=== PATIENT | male | born 1980 | race Caucasian/White ===

== ENCOUNTER 2017-03-28 18:55 | Inpatient (IN) | payer OTHER ==
--- NOTE | ~2017-03-28 | PN ---
Unit #: [id number] #: [id number] Patient: NATE JUSTICE [id number] [facility] [address] [place] [address] [id number] I MR#: [id number] NAME: NATE JUSTICE ROOM: [facility] Age: 36 Sex: M Admission Date: 03/28/2017 : 1980 Attending Physician: Henry Castro M.D. Admitting Physician: Henry Castro M.D. Primary Care Physician: Generic Doctor Not In System [facility] PROGRESS NOTES DATE 03/31/2017 DISCUSSION Last evening Nate became quite delirious, with confusion, wandering, and disorientation. This was a marked change from his presentation that morning. He was placed on one-to-one by staff, and despite this he unfortunately suffered a fall in which he got a small but cut over his right eyelid. He was sent out for assessment and his cut was sutured. This morning he continues to be mildly confused and disoriented. Memory and concentration are impaired and his thought processes demonstrate some evidence of delirium. ASSESSMENT Alcohol dependence with delirium (revised diagnosis) PLAN Continue one-to-one precautions and monitor for further delirium. We will continue with the detox protocol. Dictated by... Pinky Moreno/chepe TD: 04/02/2017 13:25 JOB #: [id number] [facility] PROGRESS NOTES Page 1 of 1 X Henry Castro MD X PROGRESS NOTE
--- NOTE | ~2017-03-28 | PN ---
Unit #: [id number] #: [id number] Patient: NATE JUSTICE [id number] [facility] [address] [place] [address] [id number] I MR#: [id number] NAME: NATE JUSTICE ROOM: P179 Age: 36 Sex: M Admission Date: 03/28/2017 : 1980 Attending Physician: Henry Castro M.D. Admitting Physician: Henry Castro M.D. Primary Care Physician: Generic Doctor Not In System [facility] PROGRESS NOTES DATE 04/01/2017 DISCUSSION Nate has been able to come off of his one-to-one precautions today. He is a little more alert and fully oriented although he has little memory of the events that occurred during his episode of delirium. Memory and concentration are improved and his thought processes are nonpsychotic. ASSESSMENT Alcohol dependence with delirium. PLAN Continue current detox protocol. Dictated by... Pinky MorenoH/chepe TD: 04/02/2017 13:28 JOB #: [id number] [facility] PROGRESS NOTES Page 1 of 1 X Henry Castro MD PROGRESS NOTE
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
--- NOTE | ~2017-03-28 | A ---
[facility] Nutrition Therapy DATE: 03/29/17 Patient: EFRA JUSTICE Physician: HARMBETTYE Address: [address] [place] [address] Room/Bed: [address], Zip: [place] [address] Admit Date: 03/28/17 Date of : [birth year] Height: 5 11 Weight: [id number] NUTRITIONAL ASSESSMENT: REASON: NUTRITION RISK POINT- UNINTENTIONAL WEIGHT LOSS PATIENT ADMITTED FOR ETOH DETOX PMH: NONE Anthropometrics: HT: 5'11", WT: 158#, BMI: 22, %IBW: 92 Labs: 03/29/17- BUN: 6 Meds: DESYREL, DETOX PROTOCOL Assessment: PATIENT IS A 36 Y/O MALE ADMITTED FOR ETOH DETOX. PATIENT IS CURRENTLY UNEMPLOYED, RENTS A HOUSE WITH ROOMMATES, DRINKS A FIFTH ETOH DAILY, AND HAS OCCASIONAL MARIJUANA USE. PATIENT STATED A POOR APPETITE WITH A 20# WEIGHT LOSS OVER LAST SEVERAL MONTHS. CURRENT PO INTAKES ARE NOT AVAILABLE. PATIENT'S BMI IS WITHIN A HEALHTY RANGE AND HE IS 92% OF HIS IBW. THERE ARE NO SKIN OR GI ISSUES NOTED ATT. PATIENT IS ON A REGULAR DIET WIH NO CAFFEINE. Dx: UNINTENTIONAL WIEGHT LOSS R/T CURRENT CONDITION, DETOX AEB SELF-REPORTED WEIGHT LOSS, DECREASED APPETITE, NUTRITIONAL RISK POINT Intervention: REGULAR DIET WITH NO CAFFEINE, MEDS PER MD, DETOX, PSYCH Monitoring, Evaluation and Goals: 1. ADEQUATE PO INTAKES >50% OF MEALS 2. PREVENT, CORRECT MICRO/MACRO NUTRIENT DEFICIENCIES MONITOR: WEIGHTS, LABS, PO/FLUID INTAKES Recommendations: 1. CONTINUE REGULAR DIET WITH NO CAFFEINE TOLERATED. IF PATIENT HAS C/O HUNGER PLEASE SEND ORDER FOR LARGE PORTION ENTREES AND RD WILL APPROVE 2. ENCOURAGE ADEQUATE PO AND FLUID INTAKES RD TO F/U PER PROTOCOL AND PRN R/T PATIENT MILDLY COMPROMISED [facility] Nutrition Therapy DATE: 03/29/17 Patient: EFRA JUSTICE Physician: CUCO Address: [address] [place] [address] Room/Bed: [address], Zip: [place] [address] Admit Date: 03/28/17 Date of : [birth year] Height: 5 11 Weight: [phone] Respectfully, MACARIO SALGADO RD, LD [facility] cc: client file
--- NOTE | ~2017-03-28 | DS ---
Unit #: [id number] #: [id number] Patient: NATE JUSTICE [id number] [facility] [address] [place] [address] [id number] I MR#: [id number] NAME: NATE JUSTICE ROOM: 79 Age: 36 Sex: M Admission Date: 03/28/2017 : 1980 Discharge Date: 04/02/2017 Attending Physician: Henry Castro M.D. Primary Care Physician: Generic Doctor Not In System DISCHARGE SUMMARY REASON FOR ADMISSION Nate is a 36-year-old man, who presented to the [place] office reporting the need for inpatient alcohol detox due to ongoing alcohol dependence. He had no suicidal ideation, intent, or plan and was transferred to [facility] for medical treatment. DIAGNOSTIC STUDIES LABORATORY RESULTS: Please see hospital chart. HOSPITAL COURSE Nate was admitted and placed on the alcohol detox protocol. Approximately 48 hours into his period of inpatient detox, he developed a delirium with confusion, disorientation, psychosis, and wandering into other patient's rooms. He suffered a fall with a mild laceration over his right eye, which was treated in the emergency room, and he was placed on one-to-one precautions. After another 24 hours, his delirium improved, and he stated he had not had an episode of that type in the past. He continued to improve with ongoing compliance with the detox protocol and on the date of discharge, his alcohol withdrawal and alcohol withdrawal delirium appeared to have resolved. He remained free of suicidal ideation, intent, or plan throughout the hospitalization. DISCHARGE DIAGNOSES AXIS I: Alcohol dependence with withdrawal, and perceptual disturbance, resolved, F10.232. AXIS II: No diagnosis. AXIS III: Alcohol withdrawal, resolved. AXIS IV: AXIS V: DISCHARGE INSTRUCTIONS Follow up with CD programing of the patient's choice. DISCHARGE MEDICATIONS None. CONDITION AT DISCHARGE Improved. PROGNOSIS Fair to good. Unit #: [id number] #: [id number] Patient: NATE JUSTICE DIET AND ACTIVITY Ad luna. Dictated by... Henry Castro M.D. H/rylie TD: 04/03/2017 01:58 JOB #: [id number] DISCHARGE SUMMARY Page 1 of 1 X Henry Castro MD DISCHARGE SUMMARY
--- NOTE | ~2017-03-28 | PN ---
Unit #: [id number] #: [id number] Patient: NATE JUSTICE [id number] [facility] [address] [place] [address] [id number] I MR#: [id number] NAME: NATE JUSTICE ROOM: [facility] Age: 36 Sex: M Admission Date: 03/28/2017 : 1980 Attending Physician: Henry Castro M.D. Admitting Physician: Henry Castro M.D. Primary Care Physician: Generic Doctor Not In System [facility] PROGRESS NOTES DATE 03/30/2017 DISCUSSION Nate has active detox symptoms today including shaking, sweating and anxiety. He is alert and fully oriented today. His memory and concentration are fair. Thought processes are logical with no evidence of confusion. ASSESSMENT Alcohol dependence. PLAN Continue detox protocol. Dictated by... Pinky MorenoH/chepe TD: 04/02/2017 13:21 JOB #: [id number] [facility] PROGRESS NOTES Page 1 of 1 X Henry Castro MD PROGRESS NOTE
--- NOTE | ~2017-03-28 | HP ---
Unit #: [id number] #: [id number] Patient: NATE JUSTICE [id number] [place] [address] [id number] I MR#: [id number] NAME: NATE JUSTICE ROOM: P179 Age: 36 Sex: M Admission Date: 03/28/2017 : 1980 Attending Physician: Henry Castro M.D. Admitting Physician: Henry Castro M.D. Primary Care Physician: Generic Doctor Not In System HISTORY AND PHYSICAL HISTORY OF PRESENT ILLNESS Nate is a 42 year old admitted to [facility] because of his abuse of alcohol. He is detoxing. PAST MEDICAL HISTORY Long history of alcohol abuse PAST SURGICAL HISTORY Nothing reported. ALLERGIES No known drug allergies. SOCIAL HISTORY He does not smoke. Drinks a fifth of vodka on a daily basis. Admits to using marijuana on occasion. FAMILY HISTORY Medically noncontributory. REVIEW OF SYSTEMS CONSTITUTIONAL: No fever or chills. HEENT: Denies any sore throat, ear pain or runny nose. CARDIOVASCULAR: Denies chest pain, irregular heart rhythm or palpitations. CHEST: Denies shortness of breath or cough. No hemoptysis. GASTROINTESTINAL: Denies nausea, vomiting, diarrhea or chronic constipation. ENDOCRINE: Denies history of increased thirst or urination. No recent significant weight loss or gain. GENITOURINARY: Denies dysuria, frequency, or hematuria. SKIN: Denies any rashes. HEMATOLOGIC: Denies history of increased bleeding or bruising. MUSCULOSKELETAL: Denies any hot, swollen joints. No generalized muscle pain. NEUROLOGIC: Denies problems with vision or speech. No frequent, severe headaches. No numbness, tingling or weakness in any extremities. Denies loss of bladder or bowel control. CURRENT MEDICATIONS Detox protocol PHYSICAL EXAMINATION Unit #: [id number] #: [id number] Patient: NATE JUSTICE GENERAL: Alert, well-nourished, in no apparent distress. VITAL SIGNS: Blood pressure 140/100, heart rate 80, respirations 16, temperature 98.6. WEIGHT: 158 pounds. HEIGHT: 5'11". SKIN: Warm and dry without rash or lesion. HEENT: Normocephalic. TMs not viewed. Oral and nasal passages clear. Conjunctivae clear. Pupils equal, round and reactive to light and accommodation. Extraocular movements intact. NECK: Supple without lymphadenopathy or thyromegaly. HEART: Regular rate and rhythm without murmur. LUNGS: Clear. ABDOMEN: Soft, nontender. : Not done. EXTREMITIES: No evidence of cyanosis, clubbing or edema. Moves all extremities without focal deficit. NEUROLOGICAL: Grossly within normal limits. Cranial Nerves: II: Visual hamilton are intact. III, IV AND : Extraocular movements are intact. Pupils are equal, round and reactive to light. V: Facial sensation is grossly normal. VII: Facial movements and expression are normal. VIII: Auditory acuity grossly intact. IX, X: Uvula is midline. Phonation is normal. XI: Patient shrugs shoulders and turns head normally. XII: Tongue protrudes in the midline. Sensory and Motor Function: Sensory and motor sensation is grossly normal. Motor: moves all extremities well. Coordination: Gait is normal. Deep Tendon Reflexes: Intact. IMPRESSION Psychiatric admission RECOMMENDATIONS PSYCHIATRIC: Per psychiatrist. MEDICAL: 1. I see no contraindications to participating in facility's activities. 2. Detox per protocol. MEDICAL PROGNOSIS Good. MEDICAL CONDITION Stable. Dictated by... Debo Delgado P.A.-C. for Pinky Beauchamp/maliha TD: 03/29/2017 22:52 JOB #: [id number] Unit #: [id number] #: [id number] Patient: NATE JUSTICE HISTORY AND PHYSICAL Page 1 of 1 X Debo Delgado HISTORY AND PHYSICAL
[2017-03-29 09:25] LABS: BASOPHIL# 0.1 X10e3 (0-0.3); BASOPHIL% 0.7 % (0-2.5); EOSINOPHIL# 0.1 X10e3 (0-0.7); EOSINOPHIL% 0.8 % (0.0-7.0); HEMATOCRIT 35.3 % (38.0-50.0); HEMOGLOBIN 12.1 gm/dL (13.0-16.0); LYMPHOCYTE# 1.2 X10e3 (1.0-3.5); MEAN CELL VOLUME 102.8 FL (83-96); MEAN CORPUSCULAR HEMOGLOBIN 35.1 PG (28-34); MEAN CORPUSCULAR HGB CONC 34.2 g/dL (30-36); MEAN PLATELET VOLUME 10.5 FL (6.5-11.5); MONOCYTE# 0.8 X10e3 (0-1.0); MONOCYTE% 10.9 % (3.0-12.0); NEUTROPHIL# 5.2 X10e3 (1.5-7.1); NEUTROPHIL% 70.6 % (40-75); PLATELET COUNT 140 X10e3 (140-420); RED BLOOD COUNT 3.44 X10e (3.90-5.60); WHITE BLOOD COUNT 7.3 X10e3 (4.0-10.5)
[2017-03-29 09:38] LABS: DIFF IND NO
[2017-03-29 09:44] LABS: ALBUMIN SERUM 3.7 g/dL (3.5-5.0); CALCIUM SERUM 9.4 mg/dL (8.4-10.2); CREATININE SERUM 0.6 mg/dL (0.6-1.4); GLOM FILT RATE Estimated 129.4 mL/min (>60); PROTEIN TOTAL SERUM 6.7 g/dL (6.0-8.3)
== END 2017-04-02 11:40 | DRG 897 ==
LOC: P1E 18:55
PROVIDERS: Psychiatry & Neurology Psychiatry
PROC: HZ2ZZZZ Detoxification Services for Substance Abuse Treatment (ICD-10-PCS; principal; 2017-03-28)
DX: F10.232 Alcohol dependence with withdrawal with perceptual disturbance (principal)
CPT/HCPCS: 80053; 85025; 86592

== ENCOUNTER 2017-03-31 02:19 | Emergency (ER) | payer OTHER ==
--- NOTE | ~2017-03-31 | CT101 ---
[facility] A Service of [facility] RADIOLOGY TEXT RESULTS PATIENT: EFRA JUSTICE LOCATION: [facility] : [birth year] UNIT #: [id number] AGE: [address]: Debo Church APRN SEX: M ORDER DR: [id number] [facility] [address] [facility] [place] [facility]. [place], [place] [address] [id number] E MR#: [id number] Acc #: [id number] NAME: EFRA JUSTICE : 1980 SEX: M STUDY DATE/TIME: 03/31/2017 2:55 UNIT: [facility] ROOM: STUDY DESCRIPTION: CT Maxillofacial Area Wo Cont Attending Physician: Debo Church A.P.R.N. Ordering Physician: Debo Church A.P.R.N. Primary Care Physician: Primary Care Physician No MEDICAL IMAGING REPORT This report is preliminary unless electronic signature is present EXAM CT face without contrast, 03/31/2017 HISTORY 36-year-old male with laceration above left eye tonight after falling. Hallucinations. Shaking. Detox. COMPARISON Noncontrast CT head 03/31/2017 at 02:48 PROCEDURE 2.0 mm axial images through the face without contrast. Sagittal and coronal reformatted images were obtained. TECHNIQUE This CT exam was performed with one or more of the following radiation dose reduction techniques: automatic exposure control, adjustment of mA and/or kV according to patient size, and iterative reconstruction. FINDINGS No acute displaced facial fracture is identified. Orbital herr appear intact. There is mild mucosal thickening involving the floor of each maxillary sinus. Temporomandibular joints appear appropriately located and no mandibular fracture is seen. No retained radiopaque foreign body is seen in the soft tissues. A few of the images are degraded by motion necessitating repeated attempts at imaging. IMPRESSION 1. No evidence of a displaced facial fracture. Mild motion degradation requiring repeated attempts at imaging. 2. Mild mucosal thickening in the floor of each maxillary sinus. Dictated by... [facility] A Service [facility] RADIOLOGY TEXT RESULTS PATIENT: EFRA JUSTICE [id number] : [birth year] UNIT #: [id number] AGE: [address]: Debo Church APRN SEX: M ORDER DR: Micaela Resendiz M.D. THIS IS AN ELECTRONICALLY VERIFIED REPORT Micaela Resendiz M.D. at 03/31/2017 10:00 PM Cristopher TD: 03/31/2017 08:55 JOB #: [id number] MEDICAL IMAGING REPORT Page 1 of 1 COPY
--- NOTE | ~2017-03-31 | CT71 ---
[facility] A Service of [facility] RADIOLOGY TEXT RESULTS PATIENT: EFRA JUSTICE LOCATION: [facility] : 80 UNIT #: [id number] AGE: [address]: Debo Church APRN SEX: M ORDER DR: [id number] [facility] [address] [facility]. [place], [place] [address] [id number] E MR#: [id number] Acc #: [id number] NAME: EFRA JUSTICE : 1980 SEX: M STUDY DATE/TIME: 03/31/2017 2:48 UNIT: [facility] ROOM: STUDY DESCRIPTION: CT Head Wo Contrast Attending Physician: Debo Church A.P.R.N. Ordering Physician: Debo Church A.P.R.N. Primary Care Physician: No Primary Care Physician MEDICAL IMAGING REPORT This report is preliminary unless electronic signature is present EXAM CT head without contrast DATE 03/31/2017 HISTORY 36-year-old male with hallucinations status post fall and laceration above of the left eye tonight. Shaking, detox. COMPARISON None. TECHNIQUE This CT exam was performed with one or more of the following radiation dose reduction techniques: automatic exposure control, adjustment of mA and/or kV according to patient size, and iterative reconstruction. FINDINGS No acute intracranial hemorrhage, mass lesion, mass effect or midline shift is seen. There is no CT evidence of acute or evolving infarct. No displaced calvarial fractures are identified. Minor ethmoid sinus mucosal thickening. Mastoid air cells appear clear. IMPRESSION No acute intracranial findings. Dictated by... Micaela Resendiz M.D. THIS IS AN ELECTRONICALLY VERIFIED REPORT Micaela Resendiz M.D. at 03/31/2017 10:02 PM [facility] A Service [facility] RADIOLOGY TEXT RESULTS PATIENT: EFRA JUSTICE LOCATION: [facility] : 80 UNIT #: [id number] AGE: [address]: Debo Church APRN SEX: M ORDER DR: Joshua TD: 03/31/2017 09:01 JOB #: [id number] MEDICAL IMAGING REPORT Page 1 of 1 COPY
== END 2017-03-31 09:00 | disposition short-term general hospital (02) ==
LOC: CED 02:19
DX: S01.112A Laceration without foreign body of left eyelid and periocular area, initial encounter (principal); Z23 Encounter for immunization; F32.9 Major depressive disorder, single episode, unspecified; W20.8XXA Other cause of strike by thrown, projected or falling object, initial encounter
CPT/HCPCS: 12011; 70450; 70486; 90471; 90715; 99284; J3486